=== PATIENT | female | born 1990 | race Hispanic/Latino ===

== ENCOUNTER 2016-05-30 10:14 | Day surgery (SDC) | payer OTHER ==
[~2016-05-30] VITALS: Ht 154.9 cm; Wt 61.0 kg
[~2016-05-30 10:14] MED LIST: AUGMENTIN PO; MDR150V IM; ONDA-53 PO; PANT20TA2 PO; Sodium Chloride LOK Flush 10 mL Syringe IV PRN; fentaNYL-PF 50 mCg/mL 2 mL Inj IVPUSH PRN
[2016-05-30 11:15] VITALS: BP 120/79; PULSE 77; RESP 16; O2SAT 99
[2016-05-30] MEDS: 0.9% Sodium Chloride 1,000 ML IV SCH ×2 (12:08→12:25)
--- NOTE | 2016-05-30 12:28 | PCM.ENDEGD ---
EGD Date of Service: May 30, 2016 Physician Yovanny Ann MD Indication for Procedure Abdominal pain Post Procedure Dx & Findings: Erosive gastropathy Procedure Esophagogastroduodenoscopy PROCEDURE IN DETAIL: The patient was placed in left lateral decubitus position. Bite block was placed. Scope lubricated, placed in posterior pharynx, passed through the cricopharyngeus and esophagus, slowly advanced the entire length of the gastric pouch, pylorus was identified, scope passed through the pylorus and descending portion of duodenum, withdrawn in the antrum, retroflexed upon itself for view of fundus and cardia. Scope was then withdrawn through the oropharynx. Esophagus unremarkable. Normal mucosa noted without ulcer or mass erosions. The entire stomach diffuse redness blunting over a folds edema with significant biliary secretion consistent with chemical gastropathy. Random biopsies obtained. Retroflexion was done. Stomach was easily inflatable and deflatable using air. We advanced to distal duodenum and duodenum showed normal villous structures with normal folds. Impression Diffuse chemical gastropathy Recommendation Continue PPI as prescribed. Carafate 10 mL by mouth 3 times a day. Please instruct the patient not to take this medication 90 minutes before after taking other medications. Presedation Assessment Risks and Benefits Informed consent was obtained from the patient after all risks and benefits including but not limited to drug reaction, infection, pain, bleeding, perforation, as well as alternatives were discussed. Patient monitoring Continuous pulse oximetry, cardiac monitoring, blood pressure monitoring, IV access, and oxygen at 2L per nasal cannula. Periprocedural Fentanyl: Fentanyl 100mcg Incrementally Midazolam: Midazolam 5mg Incrementally Diphenhydramine: Diphenhydramine 25 mg IV Complications There were no periprocedural complications identified. Post Procedure Plan Post Procedure Recommendations 1. Restrict activities today. 2. Resume normal activities in the morning. 3. Resume medications. 4. GERD behavioral modification: - Avoid fatty, acidic, spicy, large meals - Do not lie down after meals - Do not eat or drink anything for at least 2 1/2 hours before going to bed at night - Discontinue tobacco and alcohol - Decrease or avoid caffeine - Avoid chocolate and mints - Decrease weight - Avoid aspirin and non steroidal anti-inflammatory agents (NSAID) such as Aleve, Advil, Mobic, Naproxen, Ibuprofen, etc 5. Add proton pump inhibitor. Take 30 minutes before 1st meal of the day. 6. Patient informed of normal post procedure side effects as bloating, drowsiness, blood streaking in the stool 7. If gastric biopsy reveal H.pylori, continue with appropriate treatment 8. If small bowel biopsy reveals celiac, continue with appropriate treatment 9. Please don't hesitate to call me with any questions Yovanny Ann MD May 30, 2016 12:28
[2016-05-30 12:30] VITALS: BP 119/64; PULSE 78; RESP 16; O2SAT 100
[2016-05-30 12:40] VITALS: BP 113/69; PULSE 63; RESP 16; O2SAT 100
[2016-05-30 12:50] VITALS: BP 111/67; PULSE 75; RESP 16; O2SAT 100
--- NOTE | 2016-05-31 13:23 | PATH ---
SURGICAL PATHOLOGY Attending Physician:Yovanny Ann M.D. CASE STATUS: Signed Out PATIENT NAME: DEMARCUS CEDILLO PID: [id number] : 1990 DATE COLLECTED:05/30/2016 20:28 SPECIMEN: Gastric, Biopsy CLINICAL HISTORY: GASTROPATHY 1. GASTRIC BIOPSY FINAL DIAGNOSIS: Gastric Biopsy: Mild to moderate chronic gastritis involving fundic mucosa. Negative for evidence of Helicobacter. Negative for intestinal metaplasia. Negative for dysplasia and malignancy. ICD10 K29.70 GROSS DESCRIPTION: The specimen is received in one formalin filled container labeled with the patient's name, sublabeled "gastric" and consists of 3 portions of tissue which aggregate to 0.4 x 0.3 x 0.2 CM. The specimen is entirely submitted in one cassette. 05/30/2016 [facility] ICD-9 CODES: CPT CODES: 1: 77724 Electronically Signed Out Titus Ortez MD [facility] [address] [place] [address] Technical component performed at [facility], [address] [place] [address] Ave[address], [address]
== END 2016-05-30 23:59 | disposition home or self-care (01) ==
LOC: END 10:14
PROVIDERS: ATTEND Internal Medicine
DX: R10.9 Unspecified abdominal pain (principal); K29.50 Unspecified chronic gastritis without bleeding; R74.0 Nonspecific elevation of levels of transaminase and lactic acid dehydrogenase [LDH]
CPT/HCPCS: 43239; G0500; J1200; J2250; J7030